=== PATIENT | female | born 2000 | race Two or more races ===

== ENCOUNTER → 2018-03-06 15:39 | Outpatient (CLI) | payer MEDICAID, SELFPAY ==
[2018-03-06 18:50] LABS: Chlamydia Trachomatis by PCR Negative (Negative); Neisserai gonorrhoeae by PCR Negative (Negative); Probe Check PASS; Sample Adequacy Control PASS; Specimen Processing Control PASS
== END ==
PROVIDERS: Visit Provider Obstetrics & Gynecology
DX: N39.0 Urinary tract infection, site not specified (principal); Z11.3 Encounter for screening for infections with a predominantly sexual mode of transmission
CPT/HCPCS: 87086; 87088; 87186; 87491; 87591

== ENCOUNTER → 2018-05-22 15:56 | Outpatient (CLI) | payer MEDICAID, SELFPAY ==
[2018-05-22 19:26] LABS: Chlamydia Trachomatis by PCR Negative (Negative); Neisserai gonorrhoeae by PCR Negative (Negative); Probe Check PASS; Sample Adequacy Control PASS; Specimen Processing Control PASS
== END ==
PROVIDERS: Visit Provider Obstetrics & Gynecology
DX: R30.0 Dysuria (principal); Z11.3 Encounter for screening for infections with a predominantly sexual mode of transmission
CPT/HCPCS: 87086; 87088; 87186; 87491; 87591

== ENCOUNTER 2018-05-25 01:18 | Observation (INO) | payer MEDICAID, SELFPAY ==
[2018-05-25 01:18] VITALS: BP 156/106; PULSE 64; RESP 16; TEMP 36.6; O2SAT 100; BMI 24.0
[2018-05-25 01:35] LABS: Mucous, Urine 0 SEEN /hpf (<or=2+)
[2018-05-25] MEDS: 0.9% Normal Saline 1,000 ML 1000 ML IV (01:42)
[2018-05-25] MEDS: Morphine 4 MG/ML Syringe IV (01:42)
[2018-05-25] MEDS: Ondansetron 4 MG/2 ML Vial IV (01:43)
[2018-05-25 01:51] LABS: Absolute Lymphocyte Count 1.87 X10^3/ul (0.83-4.51); Absolute Neutrophil Count 11.8 X10^3/uL (2.0-7.7); Basophil# 0.02 X10^3/uL; Basophil% 0.1 % (0-1); Differential Indicated SCAN CRITERIA MET; Eosinophils% 0.6 % (0-5); Hematocrit 43.4 % (37-47); Hemoglobin 15.4 g/dl (12.0-15.0); Lymphocyte # 1.87 X10^3/ul (4.0); Lymphocyte % 11.9 % (19-41); Mean Corp Hgb Conc 35.5 g/gl (32-36); Mean Corpuscular Hgb 31.7 pg (27.0-32.0); Mean Corpuscular Volume 89.3 fL (81-99); Mean Platelet Vol. 9.5 fl (6.2-12.0); Monocyte# 1.87 X10^3/uL; Monocyte% 11.9 % (0-10); Neutrophil # 11.76 X10^3/uL (2.7-7.7); Neutrophil % 75.2 % (47-70); POSITIVE COUNT NO; POSITIVE DIFFERENTIAL YES; POSITIVE MORPHOLOGY NO; Platelet Count 211 K/mm3 (150-450); RBC Distribution Width CV 12.5 % (11.6-14.6); RBC Distribution Width SD 40.8 fl (35.1-43.9); Red Blood Count 4.86 M/mm3 (4.2-5.4); White Blood Count 15.7 K/mm3 (4.4-11.0)
[2018-05-25 01:56] LABS: Color, Urine Yellow (Yellow); Glucose, Dipstick Normal (Normal); Ketone-Dipstick 5 mg/dl (Negative); Leukocyte Esterase-Dipstick 25 /ul (Negative); Nitrite-Dipstick Negative (Negative); Occult Blood-Urine 50 /ul (Negative); Protein-Dipstick 15 mg/dl (Negative); Urine Bilirubin Dipstick Negative (Negative); Urine Clarity Sl. Cloudy (Clear); Urine Urobilinogen Normal (Normal)
[2018-05-25 02:03] LABS: AST(SGOT) 25 U/L (15-37); Alanine Aminotransfer ALT/SGPT 16 U/L (13-56); Albumin, Serum 4.3 g/dL (3.2-5.0); Alkaline Phosphatase 60 U/L (45-117); Anion Gap 11 (5-15); BUN 28 mg/dL (7-18); BUN/Creat Ratio 8.8 RATIO (10-20); Bilirubin, Direct 0.35 mg/dL (0.00-0.30); Chloride 100 mmol/L (98-107); Creatinine, Serum 3.18 mg/dL (0.55-1.02); EST Glomerular Filtration Rate 20 mL/min (>60); Est Glom Filt Rate - Afr Amer 24 mL/min (>60); Estimated Creatinine Clearance 23.54 ml/min; Globulin 3.9 g/dL (2.2-4.2); Glucose 97 mg/dL (74-106); Lipase 92 U/L (73-393); Potassium 3.3 mmol/L (3.5-5.1); Protein, Total 8.2 g/dL (6.4-8.2); Sodium Level 135 mmol/L (136-145)
[2018-05-25 02:04] LABS: Bacteria RARE /hpf (None Seen); Red Blood Cells-Urine 0-5 SEEN /hpf (0-5); Squamous Epithelial Cells - UA 10-25 SEEN /hpf (5-10); White Blood Cells 0-5 SEEN /hpf (0-5)
--- NOTE | 2018-05-25 02:14 | ED.VISSUMM ---
- ER Visit Summary Date of Service: 05/25/18 Chief Complaint: Abdominal pain bilaterally with nausea vomiting History of Present Illness: The patient is a 17 F who presents because of nausea and vomiting and back pain for the past 2-1/2 days. She states she has had nothing to eat or drink. Any attempt to drink something results and vomiting. Last bowel movement 1 day ago. She denies fever, chills or night sweats. She denies change in vision or blurred vision. She denies ear pain, decreased hearing, runny nose, congestion or sore throat. She denies chest pain presently. She states when the pain becomes severe it radiates up into her chest. She denies shortness of breath, cough or dyspnea on exertion. She does report cramping intermittent abdominal pain that becomes worse when she attempts to eat anything associated with nausea and vomiting. She denies hematemesis. She denies black or maroon stool. She denies urine nares symptoms. She does complain of mid central back pain. There is no history of cholelithiasis or intolerance to greasy or fried foods. She does report headache and generalized weakness. Review of systems otherwise negative. Physical Examination: Vital signs remarkable for a blood pressure 156/106. She appears ill but not toxic. She is pale. She appears uncomfortable. Head is atraumatic normocephalic. Pupils are equal round reactive. Extraocular muscles are intact. TMs are pearly white with landmarks noted. Nares patent with no drainage. Posterior pharynx without erythema or exudate. Uvula is midline. Tongue and buccal mucosa are dry. There is no dysphonia or dysphasia. Trachea is midline. There is no stridor with auscultation of the neck. Heart is regular without murmur, gallop or rub. S1 and S2 are normal. Lungs are clear to auscultation with good movement of air bilaterally. Abdomen is soft with diffuse tenderness greater right upper quadrant. There is no Jain sign. There is no hepatosplenomegaly. There is no umbilical or inguinal hernia. There is no inguinal lymphadenopathy. There is no CVA tenderness. There is no skin lesions noted. Neuro exam is nonfocal. Test Results: White count is elevated 15.7 thousand 75 segs no bands. Electro panels marked for a creatinine of 3.18. Total bili and direct bili are 1.2 and 0.5. Alk phos, ALT and AST are normal. Urine is a contaminated specimen with ketones. Emergency Department Course and Treatment: IV was established she received 1 L of normal saline wide open. She was medicated with Zofran and morphine. Patient was informed that she will require admission for acute kidney injury since her creatinine is elevated 3.18 and she is unable to keep anything down. Treatment Plan: IV hydration further testing and observation Disposition: 23-hour observation MedSur Impression: 1. Acute kidney injury 2. Abdominal pain with nausea and vomiting 3. Severe dehydration This note was generated with [employer] dictation software. It may contain incorrect words, spelling, and punctuation that were not noted in review of the chart prior to signing ED Disposition - Plan for ED Patient: Chief Complaint: Abd Pain Referrals: Care Physician,No Primary [Primary Care Provider] -
--- NOTE | 2018-05-25 02:36 | PCM.HP.STD ---
History of Present Illness Date of Admission: 05/25/18 Chief Complaint: nausea and vomiting The patient is a 17 year old F with no significant past medical history. She was admitted through the ED on 05/25/2018 with a complaint of vomiting for the past 2 days. She ate some chicken tennis from [employer] a couple of nights ago started having abdominal pain and vomiting. She had assisted nausea and states she has vomited about 14 times since yesterday. She denied any diarrhea, fever or chills or any urinary symptoms. Review of systems otherwise negative. Labs in the ED was significant for sodium of 135 and potassium of 3.3 as well as creatinine of 3.18. Total bilirubin was 1.2 and direct bilirubin of 0.35 and white cell count was 15.7 with hemoglobin of 15.4. She is been admitted to be managed for AK I and hyperkalemia as well as intractable vomiting. 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 Denies: Chills, Fever Eyes: Denies: Blurred vision HEENT: Denies: Head Aches, Sinus Congestion, Sinus Drainage Cardiovascular: Denies: Chest Pain, Palpitations Respiratory: Denies: Cough, Shortness of Breath, Shortness of breath at rest, Sputum production Gastrointestinal: Reports: Abdominal Pain, Nausea, Vomiting. Denies: Diarrhea, Dyspepsia Genitourinary: Denies: Dysuria, Nocturia, Urgency Musculoskeletal: Denies: Joint Pain, Joint Tenderness Skin: Denies: Rash, Wounds Neurological: Denies: Numbness, Tingling, Focal weakness Psychiatric: Denies: Anxiety, Depression, Homicidal Ideations, Suicidal Ideations Hematologic/ Lymphatic: Denies: Easy Bruising, Easy Bleeding VTE Information - Inpt Only VTE Present on Admission: No VTE Pharm Prophylaxis ordered?: Yes - Physical Exam General: Alert, Oriented x3, Cooperative, - - looks uncomfortable HEENT: Atraumatic, PERRLA, EOMI, Normocephalic Oral: Dry Mucosa Neck: Supple, No JVD, Negative Carotid Bruits Lungs: Clear to auscultation, Normal air movement, No rhonchi, No wheeze, No rales Cardiovascular: Regular rate, Regular Rhythm, Normal S1, Normal S2, No murmurs Abdomen: Bowel Sounds Present, Soft, Non Tender, Non-Distended, No Hepato-splenomegaly Extremities: No clubbing, No cyanosis, No edema, Capillary Refill Less than 3 Seconds Skin: No rashes, No breakdown Musculoskeletal: No Tenderness to Palpation of Joints or Extremities Lymphatic: No Cervical, Supraclavicular, or Inguinal Adenopathy Neurological: Cranial nerves II-XII grossly intact Psych/Mental Status: Normal Affect, Appropriate, Alert and oriented to time, place, person, mood and affect Vital Signs Temp Pulse Resp BP Pulse Ox 97.8 F 64 16 156/106 H 100 05/25/18 01:18 05/25/18 01:18 05/25/18 01:18 05/25/18 01:18 05/25/18 01:18 Oxygen Delivery Method Room Air Weight: 136 lb Body Mass Index (BMI) 24.0 Laboratory Tests Past 24 Hrs 05/25/18 05/25/18 05/25/18 01:25 01:35 01:35 WBC 15.7 H RBC 4.86 Hgb 15.4 H Hct 43.4 MCV 89.3 MCH 31.7 MCHC 35.5 RDW 12.5 RDW Differential 40.8 Plt Count 211 MPV 9.5 Immature Gran % (Auto) 0.300 Neut % (Auto) 75.2 H Lymph % (Auto) 11.9 L Moffat % (Auto) 11.9 H Eos % (Auto) 0.6 Baso % (Auto) 0.1 Absolute Neuts (auto) 11.8 H Absolute Lymphs (auto) 1.87 Total Counted Not Reportable Sodium 135 L Potassium 3.3 L Chloride 100 Carbon Dioxide 24.0 Anion Gap 11 BUN 28 H Creatinine 3.18 H Estim Creat Clear Calc 23.54 Est GFR (MDRD) Af Amer 24 L Est GFR (MDRD) Non-Af 20 L BUN/Creatinine Ratio 8.8 L Glucose 97 Calcium 9.0 Total Bilirubin 1.20 H Direct Bilirubin 0.35 H AST 25 ALT 16 Alkaline Phosphatase 60 Total Protein 8.2 Albumin 4.3 Globulin 3.9 Lipase 92 Urine Color Yellow Urine Clarity Sl. Cloudy Urine pH 6.0 Ur Specific [place] 1.010 Urine Protein 15 H Urine Glucose (UA) Normal Urine Ketones 5 H Urine Occult Blood 50 H Urine Nitrite Negative Urine Bilirubin Negative Urine Urobilinogen Normal Ur Leukocyte Esterase 25 H Urine RBC 0-5 SEEN Urine WBC 0-5 SEEN Ur Squamous Epith Cells 10-25 SEEN Urine Bacteria RARE Urine Mucus 0 SEEN Assessment/Plan 17-year-old presenting with intractable vomiting. 1. CHUY, likely pre-renal, due to intractable vomiting Cr is 3.18; baseline not known ahs been vomiting since yesterday, has vomited ~ 14 times. has no diarrhea admit to Med surg IV zofran prn for nausea and vomiting hydrate with IVF NS ~ 150cc/hr trend BMP 2. Hypokalemia; K is 3.3. will replace and monitor 3. Intractable vomiting of unclear etiology vomiting ~ 14x since yesterday cause of vomiting is unclear; ate chicken tenders at [facility] yesterday; others were the same thing did not vomit. UA showed no evidence of UTI. White cell count is 15.7 but this likely reactive. Will hydrate with IV fluid normal saline as under 1. IV Zofran. 4. Elevated blood pressure: Not a known hypertensive. Blood pressure was 156/106 on admission. This may be due to stress from current illness. Will monitor DVT prophylaxis: encourage ambulation Code Visit OBSV E&M: 37250 Initial observation care L3
--- NOTE | 2018-05-25 02:41 | HP.PCM_ITS ---
History of Present Illness Date of Admission: 05/25/18 Chief Complaint: nausea and vomiting The patient is a 17 year old F with no significant past medical history. She was admitted through the ED on 05/25/2018 with a complaint of vomiting for the past 2 days. She ate some chicken tennis from [employer] a couple of nights ago started having abdominal pain and vomiting. She had assisted nausea and states she has vomited about 14 times since yesterday. She denied any diarrhea, fever or chills or any urinary symptoms. Review of systems otherwise negative. Labs in the ED was significant for sodium of 135 and potassium of 3.3 as well as creatinine of 3.18. Total bilirubin was 1.2 and direct bilirubin of 0.35 and white cell count was 15.7 with hemoglobin of 15.4. She is been admitted to be managed for AK I and hyperkalemia as well as intractable vomiting. 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 Denies: Chills, Fever Eyes: Denies: Blurred vision HEENT: Denies: Head Aches, Sinus Congestion, Sinus Drainage Cardiovascular: Denies: Chest Pain, Palpitations Respiratory: Denies: Cough, Shortness of Breath, Shortness of breath at rest, Sputum production Gastrointestinal: Reports: Abdominal Pain, Nausea, Vomiting. Denies: Diarrhea, Dyspepsia Genitourinary: Denies: Dysuria, Nocturia, Urgency Musculoskeletal: Denies: Joint Pain, Joint Tenderness Skin: Denies: Rash, Wounds Neurological: Denies: Numbness, Tingling, Focal weakness Psychiatric: Denies: Anxiety, Depression, Homicidal Ideations, Suicidal Ideations Hematologic/ Lymphatic: Denies: Easy Bruising, Easy Bleeding VTE Information - Inpt Only VTE Present on Admission: No VTE Pharm Prophylaxis ordered?: Yes - Physical Exam General: Alert, Oriented x3, Cooperative, - - looks uncomfortable HEENT: Atraumatic, PERRLA, EOMI, Normocephalic Oral: Dry Mucosa Neck: Supple, No JVD, Negative Carotid Bruits Lungs: Clear to auscultation, Normal air movement, No rhonchi, No wheeze, No rales Cardiovascular: Regular rate, Regular Rhythm, Normal S1, Normal S2, No murmurs Abdomen: Bowel Sounds Present, Soft, Non Tender, Non-Distended, No Hepato- splenomegaly Extremities: No clubbing, No cyanosis, No edema, Capillary Refill Less than 3 Seconds Skin: No rashes, No breakdown Musculoskeletal: No Tenderness to Palpation of Joints or Extremities Lymphatic: No Cervical, Supraclavicular, or Inguinal Adenopathy Neurological: Cranial nerves II-XII grossly intact Psych/Mental Status: Normal Affect, Appropriate, Alert and oriented to time, place, person, mood and affect Vital Signs Temp Pulse Resp BP Pulse Ox 97.8 F 64 16 156/106 H 100 05/25/18 01:18 05/25/18 01:18 05/25/18 01:18 05/25/18 01:18 05/25/18 01:18 Oxygen Delivery Method Room Air Weight: 136 lb Body Mass Index (BMI) 24.0 Laboratory Tests Past 24 Hrs 05/25/18 05/25/18 05/25/18 01:25 01:35 01:35 WBC 15.7 H RBC 4.86 Hgb 15.4 H Hct 43.4 MCV 89.3 MCH 31.7 MCHC 35.5 RDW 12.5 RDW Differential 40.8 Plt Count 211 MPV 9.5 Immature Gran % (Auto) 0.300 Neut % (Auto) 75.2 H Lymph % (Auto) 11.9 L Mclennan % (Auto) 11.9 H Eos % (Auto) 0.6 Baso % (Auto) 0.1 Absolute Neuts (auto) 11.8 H Absolute Lymphs (auto) 1.87 Total Counted Not Reportable Sodium 135 L Potassium 3.3 L Chloride 100 Carbon Dioxide 24.0 Anion Gap 11 BUN 28 H Creatinine 3.18 H Estim Creat Clear Calc 23.54 Est GFR (MDRD) Af Amer 24 L Est GFR (MDRD) Non-Af 20 L BUN/Creatinine Ratio 8.8 L Glucose 97 Calcium 9.0 Total Bilirubin 1.20 H Direct Bilirubin 0.35 H AST 25 ALT 16 Alkaline Phosphatase 60 Total Protein 8.2 Albumin 4.3 Globulin 3.9 Lipase 92 Urine Color Yellow Urine Clarity Sl. Cloudy Urine pH 6.0 Ur Specific [place] 1.010 Urine Protein 15 H Urine Glucose (UA) Normal Urine Ketones 5 H Urine Occult Blood 50 H Urine Nitrite Negative Urine Bilirubin Negative Urine Urobilinogen Normal Ur Leukocyte Esterase 25 H Urine RBC 0-5 SEEN Urine WBC 0-5 SEEN Ur Squamous Epith Cells 10-25 SEEN Urine Bacteria RARE Urine Mucus 0 SEEN Assessment/Plan 17-year-old presenting with intractable vomiting. 1. CHUY, likely pre-renal, due to intractable vomiting * Cr is 3.18; baseline not known * ahs been vomiting since yesterday, has vomited ~ 14 times. has no diarrhea * admit to Med surg * IV zofran prn for nausea and vomiting * hydrate with IVF NS ~ 150cc/hr * trend BMP * 2. Hypokalemia; K is 3.3. will replace and monitor 3. Intractable vomiting of unclear etiology * vomiting ~ 14x since yesterday * cause of vomiting is unclear; ate chicken tenders at [facility] yesterday; others were the same thing did not vomit. * UA showed no evidence of UTI. * White cell count is 15.7 but this likely reactive. * Will hydrate with IV fluid normal saline as under 1. IV Zofran. * 4. Elevated blood pressure: * Not a known hypertensive. * Blood pressure was 156/106 on admission. * This may be due to stress from current illness. * Will monitor * DVT prophylaxis: encourage ambulation Code Visit OBSV E&M: 20103 Initial observation care L3
[2018-05-25 03:10] VITALS: BMI 24.7
[2018-05-25 03:17] VITALS: BMI 24.8
[2018-05-25 03:28] VITALS: BP 119/63; PULSE 54; RESP 16; TEMP 36.9; O2SAT 99
[2018-05-25] MEDS: 0.9% Normal Saline 1,000 ML 150 ML IV ×3 (03:42→20:12)
[2018-05-25] MEDS: Potassium Chloride 10mEq/100mL 10 MEQ/100 ML IV.SOLN. 100 MEQ IV BOLUS ×4 (03:45→07:01)
[2018-05-25 08:44] LABS: Anion Gap 7 (5-15); BUN 27 mg/dL (7-18); BUN/Creat Ratio 9.1 RATIO (10-20); Calcium,Total 8.2 mg/dL (8.5-10.1); Chloride 107 mmol/L (98-107); Creatinine, Serum 2.96 mg/dL (0.55-1.02); EST Glomerular Filtration Rate 22 mL/min (>60); Est Glom Filt Rate - Afr Amer 26 mL/min (>60); Estimated Creatinine Clearance 25.29 ml/min; Glucose 86 mg/dL (74-106); Potassium 4.3 mmol/L (3.5-5.1); Sodium Level 140 mmol/L (136-145)
[2018-05-25 09:30] VITALS: BP 104/61; PULSE 60; RESP 18; TEMP 37.2; O2SAT 100
--- NOTE | 2018-05-25 10:24 | US_ITS ---
STUDY: ABDOMINAL ULTRASOUND - RIGHT UPPER QUADRANT REASON FOR VISIT: Female, 17 years old. Right upper quadrant pain TECHNIQUE: Ultrasound evaluation of the right upper quadrant was performed with real-time and static farooq-scale imaging. TECHNICAL QUALITY: Adequate. COMPARISON: None. FINDINGS: Liver: The liver measures 15 cm. There is normal echogenicity of the liver. The bile ducts are within normal limits. There is hepatic color flow. The direction of portal flow is hepatopetal. There is no demonstrated mass lesion. Gallbladder: Normal distended gallbladder. The gallbladder wall measures 2.2 mm. There is a negative sonographic Jain's sign. There is no pericholecystic fluid. There are no gallstones. Common Bile Duct (C.B.D.): The common bile duct measures 2.6 mm. Pancreas: Normal size of the head, body and tail of the pancreas. There is normal echogenicity of the pancreas. There is no demonstrated pancreatic mass or cyst. Right Kidney: Normal size of the right kidney. The right kidney measures 12.7 cm. Normal renal cortex. The right cortex measures 1.3 cm. There is no demonstrated renal mass or cyst. There is no right hydronephrosis. US/Abdomen Limited IMPRESSION: Normal right upper quadrant ultrasound examination. Electronically Signed: Oscar Rodriguez DO at 12:02 EST Tel , Service support ,
[2018-05-25 12:38] LABS: Absolute Lymphocyte Count 1.54 X10^3/ul (0.83-4.51); Absolute Neutrophil Count 6.6 X10^3/uL (2.0-7.7); Basophil# 0.01 X10^3/uL; Basophil% 0.1 % (0-1); Eosinophil# 0.11 X10^3/uL; Eosinophils% 1.2 % (0-5); Hematocrit 37.4 % (37-47); Lymphocyte # 1.54 X10^3/ul (4.0); Lymphocyte % 16.2 % (19-41); Mean Corp Hgb Conc 34.8 g/gl (32-36); Mean Corpuscular Hgb 31.7 pg (27.0-32.0); Mean Corpuscular Volume 91.2 fL (81-99); Mean Platelet Vol. 9.3 fl (6.2-12.0); Monocyte# 1.25 X10^3/uL; Monocyte% 13.2 % (0-10); Neutrophil # 6.58 X10^3/uL (2.7-7.7); Neutrophil % 69.3 % (47-70); Platelet Count 159 K/mm3 (150-450); RBC Distribution Width CV 12.7 % (11.6-14.6); RBC Distribution Width SD 42.5 fl (35.1-43.9); White Blood Count 9.5 K/mm3 (4.4-11.0)
[2018-05-25 12:39] LABS: POSITIVE COUNT NO; POSITIVE DIFFERENTIAL NO; POSITIVE MORPHOLOGY NO
[2018-05-25 13:00] LABS: Anion Gap 7 (5-15); BUN 26 mg/dL (7-18); BUN/Creat Ratio 9.7 RATIO (10-20); Calcium,Total 8.6 mg/dL (8.5-10.1); Chloride 109 mmol/L (98-107); Creatinine, Serum 2.67 mg/dL (0.55-1.02); EST Glomerular Filtration Rate 24 mL/min (>60); Est Glom Filt Rate - Afr Amer 29 mL/min (>60); Estimated Creatinine Clearance 28.03 ml/min; Glucose 73 mg/dL (74-106); Potassium 4.2 mmol/L (3.5-5.1); Sodium Level 141 mmol/L (136-145)
[2018-05-25 15:30] VITALS: BP 112/63; PULSE 59; RESP 18; TEMP 37.1; O2SAT 99
[2018-05-25] MEDS: Morphine 2 MG/ML Syringe IV (15:34)
[2018-05-25] MEDS: 0.9% NaCl Peripheral Flush Adult/Peds IV (15:35)
--- NOTE | 2018-05-25 17:00 | PCM.HOSP.N ---
Hospitalist Note Seen and examined. 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 H&P, vitals, labs, imaging and plan of management reviewed Patient complain of abdominal pain mainly right upper quadrant with radiation to left upper quadrant and bilateral scapular regions. Nausea and vomiting is controlled. No fever or chills. Kidney function improving. On exam: Abdomen: Soft. Tenderness present over right subcostal region and epigastrium. No renal angle tenderness. No suprapubic tenderness. No guarding/rigidity or rebound tenderness. Lungs: Air entry bilaterally equal. No crepitation or rhonchi Heart: S1-S2 regular, no M/G/R. UA is negative for WBC, RBC, nitrite. Protein 15. Right upper quadrant sonogram reported normal. 1. Abdominal pain most probably secondary to gastroenteritis: Conservative management. IV fluid. 2. Acute kidney injury, prerenal etiology secondary to vomiting/hypovolemia: IV fluid or displacement. Electrolytes and renal function monitoring. Clinical Impression(s) from Imaging Studies Abdomen Ultrasound 05/25/18 10:24 IMPRESSION: Normal right upper quadrant ultrasound examination. Active Medications Acetaminophen (Tylenol) 650 mg PO Q4H PRN PRN PRN Reason: pain/fever Hydromorphone HCl (Dilaudid Inj) 1 mg IV Q3H PRN PRN PRN Reason: SEVERE PAIN (6-10/10) Sodium Chloride () 1,000 mls @ 150 mls/hr IV .[id number] LA NENA Last Admin: 05/25/18 11:39 Dose: 150 mls/hr Magnesium Hydroxide (Milk Of Magnesia) 30 ml PO DAILY PRN PRN PRN Reason: Constipation Morphine Sulfate () 2 mg IV Q3H PRN PRN PRN Reason: MODERATE PAIN (4-5/10) Last Admin: 05/25/18 15:34 Dose: 2 mg Ondansetron HCl (Zofran) 4 mg IV Q6H PRN PRN PRN Reason: NAUSEA/VOMITING Sodium Chloride () 5 - 15 ml IV UD PRN PRN Reason: SALINE FLUSH Last Admin: 05/25/18 15:35 Dose: 10 ml
[2018-05-25 20:15] VITALS: BP 108/67; PULSE 52; RESP 14; TEMP 36.8; O2SAT 100
[2018-05-26 00:30] VITALS: BP 106/65; PULSE 51; RESP 16; TEMP 37.3; O2SAT 98
[2018-05-26] MEDS: 0.9% Normal Saline 1,000 ML 150 ML IV (00:46)
[2018-05-26] MEDS: Morphine 2 MG/ML Syringe IV (00:46)
[2018-05-26 04:39] VITALS: BP 107/63; PULSE 54; RESP 17; TEMP 37.1; O2SAT 100
[2018-05-26 07:35] LABS: Anion Gap 6 (5-15); BUN 20 mg/dL (7-18); BUN/Creat Ratio 13.7 RATIO (10-20); Calcium,Total 7.8 mg/dL (8.5-10.1); Chloride 111 mmol/L (98-107); Creatinine, Serum 1.46 mg/dL (0.55-1.02); EST Glomerular Filtration Rate 49 mL/min (>60); Est Glom Filt Rate - Afr Amer 59 mL/min (>60); Estimated Creatinine Clearance 51.27 ml/min; Glucose 99 mg/dL (74-106); Potassium 3.7 mmol/L (3.5-5.1); Sodium Level 140 mmol/L (136-145)
[2018-05-26 09:30] VITALS: BP 130/74; PULSE 58; RESP 18; TEMP 36.7; O2SAT 100
--- NOTE | 2018-05-26 10:47 | PCM.DC.SUM ---
Discharge Date and Diagnosis Date of Admission: 05/25/18 Date of Discharge: 05/26/18 Hospital Course and Treatment Summary of Care Provided: The patient is a 17 year old F [] - Physical Exam Vital Signs Temp Pulse Resp BP Pulse Ox 98.1 F 58 L 18 130/74 H 100 05/26/18 09:30 05/26/18 09:30 05/26/18 09:30 05/26/18 09:30 05/26/18 09:30 Oxygen Delivery Method Room Air Weight: 139 lb 12.369 oz Body Mass Index (BMI) 24.7 Intake and Output for Last 24 Hours 05/24/18 05/25/18 05/26/18 23:59 23:59 23:59 Intake Total 1979 / 1979 2047 / 2047 Output Total 600 / 600 1200 / 1200 Balance 1380 / 1380 848 / 848 Laboratory Tests Past 24 Hrs 05/25/18 05/25/18 05/26/18 12:25 12:25 06:41 WBC 9.5 RBC 4.10 L Hgb 13.0 Hct 37.4 MCV 91.2 MCH 31.7 MCHC 34.8 RDW 12.7 RDW Differential 42.5 Plt Count 159 MPV 9.3 Immature Gran % (Auto) 0.000 Neut % (Auto) 69.3 Lymph % (Auto) 16.2 L [place] % (Auto) 13.2 H Eos % (Auto) 1.2 Baso % (Auto) 0.1 Absolute Neuts (auto) 6.6 Absolute Lymphs (auto) 1.54 Total Counted Not Reportable Sodium 141 140 Potassium 4.2 3.7 Chloride 109 H 111 H Carbon Dioxide 25.0 23.0 Anion Gap 7 6 BUN 26 H 20 H Creatinine 2.67 H 1.46 H Estim Creat Clear Calc 28.03 51.27 Est GFR (MDRD) Af Amer 29 L 59 L Est GFR (MDRD) Non-Af 24 L 49 L BUN/Creatinine Ratio 9.7 L 13.7 Glucose 73 L 99 Calcium 8.6 7.8 L Home Medications: Medications to take at Discharge Norethindrone AC-Eth Estradiol [Norethind-Eth Estrad 1-0.02 mg] 1 tab PO DAILY 05/25/18 Primary Care Physician: Care Physician,No Primary [Primary Care Provider] - Medical Necessity - Tobacco Use Smoking Status: Current every day smoker Tobacco Use: Cigarettes
--- NOTE | 2018-05-26 11:06 | DCINST_ITS ---
You will use the following diet at home:: Regular Your food should be the consistency of: Regular Discharge Activity: May Not Drive - for 3 days Call your doctor if you observe: Fever of 101 or Higher, Inability to have a bowel movement, Shortness of breath, Fainting spells, Chest pain, Increased palpitations (irregular heartbeat) Additional Instructions: The patient was advised BMP on 05/29/2018 follow-up PCP for resolution of CHUY Allergies/Adverse Reactions: Allergies No Known Allergies Allergy (Verified 05/25/18 01:21) Medications to take at Discharge Norethindrone AC-Eth Estradiol [Norethind-Eth Estrad 1-0.02 mg] 1 tab PO DAILY 05/25/18 Cefadroxil [Duracef] 500 mg PO BID #6 cap 05/26/18 The following prescriptions were given: Cefadroxil [Duracef] 500 mg PO BID #6 cap Primary Care Physician: Care Physician,No Primary [Primary Care Provider] - Please follow up with your Primary Care Physician in: in 1 week Test Results: Test results from this visit will be discussed in further detail at your follow- up appointment, if applicable.
--- NOTE | 2018-05-26 11:06 | PCM.DC.SUM ---
Discharge Date and Diagnosis Date of Admission: 05/25/18 Date of Discharge: 05/26/18 Hospital Course and Treatment Summary of Care Provided: [] The patient is a 17 year old F with no significant past medical history was admitted with complaint of vomiting for the past 2 days. She ate some chicken tennis from [employer] a couple of nights ago started having abdominal pain and vomiting. She had assisted nausea and states she has vomited about 14 times since yesterday. She denied any diarrhea, fever or chills or any urinary symptoms. Review of systems otherwise negative. Labs in the ED was significant for sodium of 135 and potassium of 3.3 as well as creatinine of 3.18. Total bilirubin was 1.2 and direct bilirubin of 0.35 and white cell count was 15.7 with hemoglobin of 15.4. She is been admitted to be managed for AK I and hyperkalemia as well as intractable vomiting. Patient also has history of chronic UTI during her adolescent age. She went to her [facility] and had urine culture done on 1218 which shows E. coli more than 100,000, pansensitive. Patient was given prescription of ciprofloxacin and Bactrim DS was told Cipro for acute treatment and Bactrim DS for prophylaxis. Patient had vomiting after 5 hours of taking Cipro. Repeat UA shows WBC 0-5 cells, LE 25, nitrite negative. Bacteria rare. As per the sensitivity, patient was given 3 more days of cefadroxil 500 mg twice daily. Patient denies lower urinary tract symptoms including burning micturition, increased frequency, nocturia, urgency or retention. Her abdominal pain HAS subsided. No fever or chills. Nausea or vomiting. Kidney function improving. Right upper quadrant sonogram reported normal. 1. Abdominal pain most probably secondary to gastroenteritis: Conservative management. IV fluid. 2. Acute kidney injury, prerenal etiology secondary to vomiting/hypovolemia: Creatinine improved from 3.18-1.46. BUN improved. Electrolytes corrected. Mild hypokalemia: Potassium corrected. Patient was advised to follow-up BMP on 05/29/2018 with PCP to show further improvement of kidney function. Patient wants to go home. Discharge medication reconciliation done. Discharge follow-up instructions completed. Discharge process discussed with the patient. Subjective: Seen and examined. Patient denies nausea vomiting. No abdominal pain. Patient had a history of recurrent UTI during her adolescent age. - Physical Exam General: Alert, Oriented x3, Cooperative HEENT: Atraumatic, PERRLA, EOMI, Normocephalic Neck: Supple, No JVD, Negative Carotid Bruits Lungs: Clear to auscultation, Normal air movement, No rhonchi, No rales Cardiovascular: Regular rate, Regular Rhythm, Normal S1, Normal S2, No murmurs Abdomen: Bowel Sounds Present, Soft, Non Tender, Non-Distended, - - Denies lower urinary tract symptoms. No suprapubic tenderness. No renal angle tenderness Extremities: No edema, Capillary Refill Less than 3 Seconds Skin: No rashes, No breakdown Musculoskeletal: No Tenderness to Palpation of Joints or Extremities Neurological: Cranial nerves II-XII grossly intact Psych/Mental Status: Normal Affect, Appropriate Vital Signs Temp Pulse Resp BP Pulse Ox 98.1 F 58 L 18 130/74 H 100 05/26/18 09:30 05/26/18 09:30 05/26/18 09:30 05/26/18 09:30 05/26/18 09:30 Oxygen Delivery Method Room Air Weight: 139 lb 12.369 oz Body Mass Index (BMI) 24.7 Intake and Output for Last 24 Hours 05/24/18 05/25/18 05/26/18 23:59 23:59 23:59 Intake Total 1979 / 1979 2047 / 2047 Output Total 600 / 600 1200 / 1200 Balance 1380 / 1380 848 / 848 Laboratory Tests Past 24 Hrs 05/25/18 05/25/18 05/26/18 12:25 12:25 06:41 WBC 9.5 RBC 4.10 L Hgb 13.0 Hct 37.4 MCV 91.2 MCH 31.7 MCHC 34.8 RDW 12.7 RDW Differential 42.5 Plt Count 159 MPV 9.3 Immature Gran % (Auto) 0.000 Neut % (Auto) 69.3 Lymph % (Auto) 16.2 L [place] % (Auto) 13.2 H Eos % (Auto) 1.2 Baso % (Auto) 0.1 Absolute Neuts (auto) 6.6 Absolute Lymphs (auto) 1.54 Total Counted Not Reportable Sodium 141 140 Potassium 4.2 3.7 Chloride 109 H 111 H Carbon Dioxide 25.0 23.0 Anion Gap 7 6 BUN 26 H 20 H Creatinine 2.67 H 1.46 H Estim Creat Clear Calc 28.03 51.27 Est GFR (MDRD) Af Amer 29 L 59 L Est GFR (MDRD) Non-Af 24 L 49 L BUN/Creatinine Ratio 9.7 L 13.7 Glucose 73 L 99 Calcium 8.6 7.8 L Discharge Activity: May Not Drive - for 3 days Call your doctor if you observe: Fever of 101 or Higher, Inability to have a bowel movement, Shortness of breath, Fainting spells, Chest pain, Increased palpitations (irregular heartbeat) Home Medications: Medications to take at Discharge Norethindrone AC-Eth Estradiol [Norethind-Eth Estrad 1-0.02 mg] 1 tab PO DAILY 05/25/18 Cefadroxil [Duracef] 500 mg PO BID #6 cap 05/26/18 Ondansetron HCl [Zofran] 4 mg PO Q6H PRN PRN #14 tablet 05/26/18 Following Prescrptions Were Given to Patient: Ondansetron HCl [Zofran] 4 mg PO Q6H PRN PRN #14 tablet PRN Reason: Nausea/vomiting Cefadroxil [Duracef] 500 mg PO BID #6 cap Primary Care Physician: Care Physician,No Primary [Primary Care Provider] - Please follow up with your Primary Care Physician in: in 1 week Medical Necessity - Tobacco Use Smoking Status: Current every day smoker Tobacco Use: Cigarettes Meaningful Use Info Meaningful Use Diagnoses (Choose all that apply): None applicable Code Visit OBSV E&M: 92390 Observation care discharge
== END 2018-05-26 12:40 | disposition home or self-care (01) ==
LOC: ED 01:33 → MS3 02:37
PROVIDERS: Admitting Provider Student in an Organized Health Care Education/Training Program; Emergency Provider Emergency Medicine; Visit Provider Internal Medicine
DX: R10.9 Unspecified abdominal pain (principal); N17.9 Acute kidney failure, unspecified; E87.6 Hypokalemia; R11.2 Nausea with vomiting, unspecified; M54.89 Other dorsalgia; E86.0 Dehydration; Z79.899 Other long term (current) drug therapy; F17.210 Nicotine dependence, cigarettes, uncomplicated; R03.0 Elevated blood-pressure reading, without diagnosis of hypertension
CPT/HCPCS: 36415; 76705; 80048; 80076; 81001; 83690; 85025; 96361; 96374; 96375; 96376; 99218; 99283; J7030; A4216; G0378; J2405

== ENCOUNTER → 2018-07-24 15:18 | Outpatient (CLI) | payer MEDICAID, SELFPAY ==
[2018-07-24 15:24] LABS: Mucous, Urine 0 SEEN /hpf (<or=2+); Red Blood Cells-Urine 0 SEEN /hpf (0-5)
[2018-07-24 15:47] LABS: Color, Urine Yellow (Yellow); Glucose, Dipstick Normal (Normal); Ketone-Dipstick Negative (Negative); Leukocyte Esterase-Dipstick 25 /ul (Negative); Nitrite-Dipstick Positive (Negative); Occult Blood-Urine 150 /ul (Negative); Protein-Dipstick Negative (Negative); Specific Gravity, Urine 1.015 (1.002-1.030); Urine Bilirubin Dipstick Negative (Negative); Urine Clarity Sl. Cloudy (Clear); Urine Urobilinogen Normal (Normal)
[2018-07-24 16:01] LABS: Bacteria 4+ /hpf (None Seen); Squamous Epithelial Cells - UA 5-10 SEEN /hpf (5-10); White Blood Cells 0-5 SEEN /hpf (0-5)
[2018-07-24 16:15] LABS: Albumin, Serum 3.9 g/dL (3.2-5.0); BUN 8 mg/dL (7-18); BUN/Creat Ratio 11.9 RATIO (10-20); Calcium,Total 8.9 mg/dL (8.5-10.1); Chloride 104 mmol/L (98-107); Creatinine, Serum 0.67 mg/dL (0.55-1.02); EST Glomerular Filtration Rate 119 mL/min (>60); Est Glom Filt Rate - Afr Amer 144 mL/min (>60); Glucose 85 mg/dL (74-106); Potassium 3.5 mmol/L (3.5-5.1); Sodium Level 139 mmol/L (136-145)
[2018-07-24 16:19] LABS: hCG Titer Quant., Serum < 1 mIU/mL (<9 non-preg)
== END ==
PROVIDERS: Visit Provider Obstetrics & Gynecology
DX: N11.0 Nonobstructive reflux-associated chronic pyelonephritis (principal)
CPT/HCPCS: 36415; 80069; 81001; 84702

== ENCOUNTER 2018-08-10 01:22 | Emergency (ER) | payer MEDICAID, SELFPAY ==
[2018-08-10 01:23] VITALS: BP 161/76; PULSE 90; RESP 18; TEMP 36.5; O2SAT 97; BMI 27.0
--- NOTE | 2018-08-10 01:33 | RAD_ITS ---
STUDY: X-RAY - RIGHT ANKLE REASON FOR EXAM: Female, 17 years old. Lateral ankle pain TECHNIQUE: 3 view(s) of the ankle. COMPARISON: None. FINDINGS: Normal visualized distal tibia and fibula. Normal medial and lateral malleoli. Normal tibiotalar articulation and ankle mortise. Normal visualized talus and calcaneus. The visualized subtalar, talonavicular, calcaneocuboid and tarsal articulations are normal. Soft tissue swelling at the lateral aspect of the ankle suggesting edema. RAD/Ankle min 3 Views IMPRESSION: Soft tissue swelling at the lateral aspect of the ankle suggesting edema. Electronically Signed: Frank Smith, at 2:50 EST Tel , Service support ,
--- NOTE | 2018-08-10 02:22 | ED.DCSUM_ITS ---
- ER Visit Summary Date of Service: 08/10/18 Chief Complaint: Right ankle pain History of Present Illness: The patient is a 17 F who presents with right ankle pain. She was playing beer Pong when she fell wrong injuring her right ankle. No other injuries. She has been unable to bear weight due to pain. No recent illness. Physical Examination: Afebrile vitals unremarkable Patient has soft tissue swelling over the lateral ankle and focal lateral malleolus bony tenderness there is no obvious deformity intact full range of motion easily palpable dorsalis pedis pulse brisk capillary refill normal sensation to light touch Test Results: Right ankle x-ray on my review shows no acute fracture or dislocation. Emergency Department Course and Treatment: Patient was given an Aircast and crutches. She was advised on supportive care including rest ice elevation and anti-inflammatory use. She understands to return for new or worsening symptoms. She was advised to follow-up as an outpatient. She was discharged. Treatment Plan: [] Disposition: Discharge Impression: Acute right ankle sprain This note was generated with [employer] dictation software. It may contain incorrect words, spelling, and punctuation that were not noted in review of the chart prior to signing ED Disposition - Plan for ED Patient: Referrals: Care Physician,No Primary [Primary Care Provider] -
--- NOTE | 2018-08-10 02:22 | ED.DEP ---
ED Disposition - Plan for ED Patient: Instructions: ED Sprain Ankle W X Ray Referrals: Care Physician,No Primary [Primary Care Provider] -
== END 2018-08-10 02:48 | disposition home or self-care (01) ==
PROVIDERS: Emergency Provider Emergency Medicine
DX: S93.401A Sprain of unspecified ligament of right ankle, initial encounter (principal); Z72.0 Tobacco use; W18.30XA Fall on same level, unspecified, initial encounter; Y93.89 Activity, other specified; Y92.89 Other specified places as the place of occurrence of the external cause; Y99.8 Other external cause status
CPT/HCPCS: 73610; 99284

== ENCOUNTER → 2020-11-29 10:07 | Outpatient (CLI) | payer MEDICAID, SELFPAY ==
[2020-11-29 11:51] LABS: Absolute Lymphocyte Count 1.84 X10^3/uL (0.83-4.51); Absolute Neutrophil Count 5.8 X10^3/uL (2.0-7.7); Basophil# 0.02 X10^3/uL; Basophil% 0.2 % (0-1); Eosinophil# 0.15 X10^3/uL; Eosinophils% 1.7 % (0-5); Hematocrit 43.3 % (37-47); Hemoglobin 14.8 g/dL (12.0-15.0); Lymphocyte # 1.84 X10^3/ul (0.83-4.51); Lymphocyte % 21.2 % (19-41); Mean Corp Hgb Conc 34.2 g/dL (32-36); Mean Corpuscular Hgb 31.7 pg (27.0-32.0); Mean Corpuscular Volume 92.7 fL (81-99); Mean Platelet Vol. 9.6 fl (6.2-12.0); Monocyte# 0.88 X10^3/uL; Monocyte% 10.1 % (0-10); NRBC Flagged by Analyzer 0 % (0-5); Neutrophil # 5.75 X10^3/uL (2.7-7.7); Neutrophil % 66.3 % (47-70); Platelet Count 274 K/mm3 (150-450); RBC Distribution Width CV 11.5 % (11.6-14.6); Red Blood Count 4.67 M/mm3 (4.2-5.4); White Blood Count 8.7 K/mm3 (4.4-11.0)
[2020-11-29 12:43] LABS: HIV - WCH Non-Reactive (Nonreactive); Hepatitis B Surface Antigen Non-Reactive (Nonreactive); Hepatitis C Antibody Non-Reactive (Nonreactive); Rubella IgG Reactive (Nonreactive); Syphilis Antibodies Non-reactive
[2020-12-01 04:14] LABS: Chlamydia By Nucleic Acid AMP Negative (Negative)
[2020-12-01 11:37] LABS: Gonococcus By Nucleic Acid AMP Negative (Negative)
[2020-12-02 14:44] LABS: HPV Reflexed? NOT INDICATED
== END ==
PROVIDERS: Visit Provider Obstetrics & Gynecology
DX: Z34.81 Encounter for supervision of other normal pregnancy, first trimester (principal); Z12.4 Encounter for screening for malignant neoplasm of cervix; Z11.3 Encounter for screening for infections with a predominantly sexual mode of transmission
CPT/HCPCS: 36415; 85025; 86703; 86762; 86780; 86803; 87086; 87088; 87186; 87340; 87491; 87591; 88175; G0145